=== PATIENT | female | born 1955 | race Two or more races ===

== ENCOUNTER 2021-06-24 14:47 | Emergency (ER) | payer OTHER ==
[~2021-06-24] VITALS: Ht 149.9 cm; Wt 70.3 kg
[2021-06-24] MEDS ORDERED: JARDIANCE25 MG PO (15:59)
[2021-06-24] MEDS ORDERED: GLIPIZIDE5 MG PO (15:59)
[2021-06-24] MEDS ORDERED: JANUMET 50-1,01 EACH PO (16:00)
[2021-06-24] MEDS ORDERED: LOSARTAN POTASS25 MG PO (16:00)
== END 2021-06-24 18:40 | disposition home or self-care (01) ==
LOC: ER 14:47
DX: S90.212A Contusion of left great toe with damage to nail, initial encounter (principal); S90.32XA Contusion of left foot, initial encounter; S80.02XA Contusion of left knee, initial encounter; S00.83XA Contusion of other part of head, initial encounter; W18.09XA Striking against other object with subsequent fall, initial encounter; Y93.89 Activity, other specified; Y92.480 Sidewalk as the place of occurrence of the external cause; Y99.8 Other external cause status